=== PATIENT | female | born 1950 | race Native Hawaiian/Other Pacific Islander ===

== ENCOUNTER 2017-01-07 07:47 | Day surgery (SDC) | payer OTHER, MEDICARE ==
[~2017-01-07] VITALS: Ht 165.1 cm; Wt 68.0 kg
== END 2017-01-07 10:34 | disposition home or self-care (01) ==
LOC: OR 07:47
PROC: 0DBN8ZZ Excision of Sigmoid Colon, Via Natural or Artificial Opening Endoscopic (ICD-10-PCS; principal; 2017-01-07)
PROC: 0DBH8ZZ Excision of Cecum, Via Natural or Artificial Opening Endoscopic (ICD-10-PCS; 2017-01-07)
PROC: 0DBL8ZZ Excision of Transverse Colon, Via Natural or Artificial Opening Endoscopic (ICD-10-PCS; 2017-01-07)
DX: D12.5 Benign neoplasm of sigmoid colon (principal); D12.3 Benign neoplasm of transverse colon; D12.0 Benign neoplasm of cecum; K57.30 Diverticulosis of large intestine without perforation or abscess without bleeding; K64.8 Other hemorrhoids; Z12.11 Encounter for screening for malignant neoplasm of colon
CPT/HCPCS: J2001; J2250; J2704

== ENCOUNTER 2017-09-17 10:43 | Outpatient (CLI) | payer OTHER, MEDICARE | END 2017-09-17 11:11 | disposition short-term general hospital (02) | LOC: AMB 10:43 | DX: R06.09 Other forms of dyspnea (principal); R05 Cough | CPT/HCPCS: A0425; A0429 ==

== ENCOUNTER 2017-09-17 11:15 | Emergency (ER) | payer OTHER, MEDICARE ==
[~2017-09-17] VITALS: Ht 162.6 cm; Wt 77.1 kg
[2017-09-17 13:00] LABS: PLATELET COUNT 182 K/uL (152-353)
[2017-09-17 13:02] LABS: POTASSIUM 3.7 mmol/L (3.6-5.2); SODIUM 137 mmol/L (136-145)
[2017-09-17 14:20] VITALS: BP 115/86; TEMP 97.8
== END 2017-09-17 14:20 | disposition home or self-care (01) ==
LOC: ED 11:15
PROVIDERS: Emergency Medicine
DX: J40 Bronchitis, not specified as acute or chronic (principal)
CPT/HCPCS: 36415; 80053; 85027; 96372; 99283; J0696

== ENCOUNTER 2019-04-08 13:09 | Outpatient (CLI) | payer OTHER | END 2019-04-08 23:36 | disposition home or self-care (01) | LOC: RAD 13:09 | DX: R53.82 Chronic fatigue, unspecified (principal); R05 Cough ==

== ENCOUNTER 2019-07-16 15:18 | Outpatient (CLI) | payer OTHER | END 2019-07-16 22:07 | disposition home or self-care (01) | LOC: CT 15:18 | DX: R05 Cough (principal) ==

== ENCOUNTER 2019-09-01 05:30 | Inpatient (IN) | payer OTHER ==
[~2019-09-01] VITALS: Ht 162.6 cm; Wt 80.8 kg
[2019-09-01] VITALS (7 sets, daily range): BP systolic 113–169; BP diastolic 46–81; TEMP 97.9–98.8; Ht 162.6 cm; Wt 80.8 kg
[2019-09-01 07:00] LABS: PLATELET COUNT 178 K/uL (152-353)
[2019-09-01 07:33] LABS: POTASSIUM 3.8 mmol/L (3.6-5.2)
[2019-09-01] MEDS ORDERED: MOBIC7.5 M1 PO (16:12)
[2019-09-01] MEDS ORDERED: DULOXETINE HCL30 MG PO (16:14)
[2019-09-01] MEDS ORDERED: BREO ELLIPTA 201 INH PO (16:16)
[2019-09-01] MEDS ORDERED: COZAAR100 MG PO (16:24)
[2019-09-01] MEDS ORDERED: OMEPRAZOLE40 MG PO (16:24)
[2019-09-01] MEDS ORDERED: ROSU10TA PO (16:25)
[2019-09-01] MEDS ORDERED: CELE100C2 PO (16:27)
[2019-09-01] MEDS ORDERED: ELIMITE5 % EX (16:47)
[2019-09-02] VITALS: BP 139/68; TEMP 99
[2019-09-02 04:00] VITALS: BP 134/71; TEMP 99.4
[2019-09-02 05:59] LABS: PLATELET COUNT 233 K/uL (152-353)
[2019-09-02 06:01] LABS: POTASSIUM 3.6 mmol/L (3.6-5.2)
[2019-09-02 08:00] VITALS: BP 126/61; TEMP 97.9
[2019-09-02 12:00] VITALS: BP 146/63; TEMP 98.7
[2019-09-02] MEDS ORDERED: ELIMITE5 % EX (12:58)
[2019-09-02] MEDS ORDERED: LEVAQUIN250 MG PO (12:59)
== END 2019-09-02 15:00 | disposition home or self-care (01) | DRG 392 ==
LOC: ED 05:30 → MED/SURG 10:06
PROVIDERS: Internal Medicine; Student in an Organized Health Care Education/Training Program; ADMIT Emergency Medicine
DX: K52.89 Other specified noninfective gastroenteritis and colitis (principal); I10 Essential (primary) hypertension; D72.828 Other elevated white blood cell count; B85.1 Pediculosis due to Pediculus humanus corporis; F32.89 Other specified depressive episodes
CPT/HCPCS: 80048; 80053; 81000; 83605; 83690; 83735; 85027; 87015; 87040; 87045; 87324; 87449; 87502; 87899; 93005; 96360; 96361; 96365; 96366; 96375; 99284; J1650; J1956; J2270; J2405; Q9963

== ENCOUNTER 2019-09-09 10:53 | Outpatient (CLI) | payer OTHER ==
[~2019-09-09 10:53] MED LIST: BREO ELLIPTA 201 INH PO; CELE100C2 PO; COZAAR100 MG PO; DULOXETINE HCL30 MG PO; ELIMITE5 % EX; LEVAQUIN250 MG PO; MOBIC7.5 M1 PO; OMEPRAZOLE40 MG PO; ROSU10TA PO
== END 2019-09-09 11:07 | disposition short-term general hospital (02) ==
LOC: AMB 10:53
DX: R06.02 Shortness of breath (principal); R41.82 Altered mental status, unspecified
CPT/HCPCS: A0425; A0426

== ENCOUNTER 2019-09-09 11:29 | Emergency (ER) | payer OTHER ==
[~2019-09-09] VITALS: Ht 162.6 cm; Wt 80.7 kg
[2019-09-09 11:34] VITALS: TEMP 97.7
[2019-09-09 13:02] LABS: PLATELET COUNT 323 K/uL (152-353)
[2019-09-09 13:08] LABS: POTASSIUM 3.5 mmol/L (3.6-5.2)
[2019-09-09 16:27] VITALS: BP 156/88
== END 2019-09-09 15:50 | disposition home or self-care (01) ==
LOC: ED 11:29
PROVIDERS: Hospitalist
DX: K52.89 Other specified noninfective gastroenteritis and colitis (principal); N39.0 Urinary tract infection, site not specified
CPT/HCPCS: 36415; 80053; 82150; 83605; 83690; 85027; 96360; 96361; 96374; 96375; 99284; J2405

== ENCOUNTER 2020-05-08 08:11 | Outpatient (CLI) | payer OTHER | END 2020-05-08 19:07 | disposition home or self-care (01) | LOC: CT 08:11 | DX: R51 Headache (principal); D64.89 Other specified anemias; R30.0 Dysuria; N39.0 Urinary tract infection, site not specified ==

== ENCOUNTER 2020-05-16 09:23 | Emergency (ER) | payer OTHER ==
[~2020-05-16] VITALS: Ht 162.6 cm; Wt 77.1 kg
[2020-05-16 09:29] VITALS: TEMP 98.9
[2020-05-16 10:50] LABS: PLATELET COUNT 206 K/uL (152-353)
[2020-05-16 10:56] LABS: POTASSIUM 3.8 mmol/L (3.6-5.2)
[2020-05-16 11:15] LABS: PARTIAL THROMBOPLASTIN TIME 22.9 SECONDS (24.5-33.6)
[2020-05-16 13:30] VITALS: BP 168/85
== END 2020-05-16 14:02 | disposition home or self-care (01) ==
LOC: ED 09:23
PROVIDERS: Family Medicine
DX: Z91.81 History of falling (principal); I67.82 Cerebral ischemia; Z79.899 Other long term (current) drug therapy; Z51.81 Encounter for therapeutic drug level monitoring
CPT/HCPCS: 80053; 81000; 85027; 85610; 85730; 99283

== ENCOUNTER 2020-06-06 10:07 | Outpatient (CLI) | payer OTHER | END 2020-06-06 20:27 | disposition home or self-care (01) | LOC: MRI 10:07 | DX: R29.6 Repeated falls (principal); I10 Essential (primary) hypertension; K21.9 Gastro-esophageal reflux disease without esophagitis; R53.83 Other fatigue; R51 Headache; R90.89 Other abnormal findings on diagnostic imaging of central nervous system ==

== ENCOUNTER 2020-08-03 09:55 | Outpatient (CLI) | payer OTHER | END 2020-08-03 19:04 | disposition home or self-care (01) | LOC: RESP 09:55 | PROVIDERS: ATTEND Internal Medicine Cardiovascular Disease | DX: I10 Essential (primary) hypertension (principal) ==

== ENCOUNTER 2022-03-31 17:35 | Emergency (ER) | payer OTHER ==
[~2022-03-31] VITALS: Ht 162.6 cm; Wt 77.1 kg
[2022-03-31 17:39] VITALS: TEMP 97.6
[2022-03-31 17:53] LABS: PLATELET COUNT 239 K/uL (152-353)
[2022-03-31 19:18] LABS: PARTIAL THROMBOPLASTIN TIME 21.6 SECONDS (24.5-33.6)
[2022-03-31 20:00] VITALS: BP 94/64
== END 2022-03-31 20:00 | disposition home or self-care (01) ==
LOC: ED 17:35
PROVIDERS: Hospitalist
DX: S09.8XXA Other specified injuries of head, initial encounter (principal); R42 Dizziness and giddiness; W01.198A Fall on same level from slipping, tripping and stumbling with subsequent striking against other object, initial encounter; Y92.89 Other specified places as the place of occurrence of the external cause; Z79.899 Other long term (current) drug therapy; Z51.81 Encounter for therapeutic drug level monitoring
CPT/HCPCS: 80048; 80320; 85027; 85610; 85730; 93005; 96360; 96374; 96375; 99284; J1885; J2405

== ENCOUNTER 2023-06-02 08:12 | Outpatient (CLI) | payer OTHER | END 2023-06-02 21:11 | disposition home or self-care (01) | LOC: RAD 08:12 | PROVIDERS: ATTEND Nurse Practitioner Family | DX: R05.3 Chronic cough (principal) ==